=== PATIENT | female | born 1995 | race Caucasian/White ===

== ENCOUNTER 2016-09-20 22:47 | Emergency (ER) | payer SELFPAY ==
[~2016-09-20] VITALS: Ht 165.1 cm; Wt 77.1 kg
[2016-09-20 22:55] VITALS: BP 144/72
--- NOTE | 2016-09-20 23:23 | PHYS DOC ---
Past Medical History Past Medical History: Asthma Past Surgical History: Tonsillectomy Alcohol Use: None Drug Use: None Adult General Chief Complaint Chief Complaint: FLU SYMPTOM HPI HPI Patient is a 21 year old female who presents emergency department with a four- day history of cough, congestion, body aches, subjective fevers and chills. 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 She states she is exposed to multiple people each day that are ill. She denies any known direct contact with anyone with influenza. She states that she began taking azithromycin yesterday at home for azithromycin that was left over. She states that she has a history of asthma. She states that she has had multiple albuterol nebulized treatments today. Last one was approximately 30 minutes prior to arrival. Review of Systems Review of Systems Constitutional: Denies fever or chills [] Eyes: Denies change in visual acuity, redness, or eye pain [] HENT: Denies nasal congestion or sore throat [] Respiratory: Denies cough or shortness of breath [] Cardiovascular: No additional information not addressed in HPI [] GI: Denies abdominal pain, nausea, vomiting, bloody stools or diarrhea [] : Denies dysuria or hematuria [] Musculoskeletal: Denies back pain or joint pain [] Integument: Denies rash or skin lesions [] Neurologic: Denies headache, focal weakness or sensory changes [] Endocrine: Denies polyuria or polydipsia [] Allergies Allergies Allergies Coded Allergies Type Severity Reaction Last Updated Verified Sulfa (Sulfonamide Antibiotics) Allergy Unknown Hives 06/20/14 No Physical Exam Physical Exam Constitutional: Well developed, well nourished, no acute distress, non-toxic appearance. Patient is afebrile. HENT: Normocephalic, atraumatic, bilateral external ears normal, oropharynx is tacky, no oral exudates, clear nasal discharge bilaterally. Eyes: PERRLA, EOMI, conjunctiva normal, no discharge. [] Neck: Normal range of motion, no tenderness, supple, no stridor. There is no meningismus. There is bilateral anterior and posterior cervical lymphadenopathy. Cardiovascular:Heart rate 112 with regular rhythm, no murmur Lungs & Thorax: There is no respiratory distress or respiratory fatigue. There is end-expiratory wheezes primarily in the right lung pagan. Abdomen: Bowel sounds normal, soft, no tenderness, no masses, no pulsatile masses. [] Skin: Warm, dry, no erythema, no rash. Back: No tenderness, no CVA tenderness. [] Extremities: No tenderness, no cyanosis, no clubbing, ROM intact, no edema. [] Neurologic: Alert and oriented X 3, normal motor function, normal sensory function, no focal deficits noted. Psychologic: Affect normal, judgement normal, mood normal. [] Current Patient Data Vital Signs Vital Signs Date Time Temp Pulse Resp B/P Pulse Ox O2 Delivery O2 Flow Rate FiO2 09/20/16 22:55 98.3 119 20 97 Room Air 98.3 EKG EKG [] Radiology/Procedures Radiology/Procedures PA and lateral chest x-ray was performed with adequate technique and reviewed by Dr. John and myself. There is no evidence of thoracic pathology. Course & Med Decision Making Course & Med Decision Making Pertinent Labs and Imaging studies reviewed. (See chart for details) [] Dragon Disclaimer Dragon Disclaimer This electronic medical record was generated, in whole or in part, using a voice recognition dictation system. Departure Departure Impression: Primary Impression: Acute bronchitis Additional Impression: Upper respiratory infection Disposition: HOME, SELF-CARE Condition: GOOD Referrals: AJ BERGERON MD (PCP) Patient Instructions: Acute Bronchitis, [id number], Upper Respiratory Infection, Adult, [id number] Additional Instructions: 1. Your chest x-ray today shows no evidence of pneumonia. 2. Take the medication as prescribed. Use your nebulizer every 6 hours for wheezing and difficulty breathing. 3. Complete the azithromycin that you began taking. 4. Rest at home for the next 2 days. Drink 8-10, 10 ounce glasses of water daily. X 5. Follow-up with your primary care doctor within the next week. Sooner if your condition worsens. Scripts Hydrocodone/Chlorphen Polis (Tussionex Pennkinetic Susp)480 Ml [id number] Ml PO BID COUGH #120 ML Prov:MERRY SILVERIO 09/21/16 Prednisone 20 Mg Tablet2 Tab PO DAILY 5 Days Prov:MERRY SILVERIO 09/21/16 Problem Qualifiers MERRY SILVERIO Sep 20, 2016 23:24
[2016-09-21] MEDS ORDERED: HYDR115S2 PO (00:16)
[2016-09-21] MEDS ORDERED: PRED20TA PO (00:16)
--- NOTE | 2016-09-21 07:24 | RAD ---
2 view CXR: Clinical indications: Cough and fever and wheezing. Rales of the right lung field. Findings: No acute lung infiltrate or pleural effusion or pulmonary edema or lung mass or pneumothorax is seen. The heart size, pulmonary vasculature, mediastinum and both haider are unremarkable. The osseous structures appear intact. Impression: No acute radiographic abnormality is seen.
== END 2016-09-21 00:17 | disposition home or self-care (01) ==
LOC: ER 22:47
DX: J20.9 Acute bronchitis, unspecified (principal); J06.9 Acute upper respiratory infection, unspecified; J45.909 Unspecified asthma, uncomplicated; Z88.2 Allergy status to sulfonamides
CPT/HCPCS: 71020; 99284-25

== ENCOUNTER → 2018-07-23 | Outpatient (CLI) | payer OTHER ==
[~2018-07-23] MED LIST: HYDR115S2 PO; PRED20TA PO
--- NOTE | 2018-07-23 13:49 | KCIC ---
Right breast ultrasound: Reason for examination: Bloody discharge from right nipple. Patient is . Right whole breast ultrasound including evaluation of all 4 quadrants and the retroareolar and axillary regions of the right breast was performed. In the 12:00 position 8 cm from the nipple, there is a circumscribed nodule in parallel orientation with central vascular flow. Appearance suggests a probable intramammary lymph node. This measures 6.6 x 5.2 mm in greatest dimension. Recommend reevaluation in 3 months. No other cystic or solid nodules are seen. No ductal ectasia or intraductal papilloma are identified. No abnormal appearing lymph nodes are seen in the right axilla. IMPRESSION: 6.6 mm circumscribed nodule at the 12:00 position 8 cm from the nipple which probably represents an intramammary lymph node. No other focal abnormality seen. Recommend reevaluation of the right breast in 3 months with ultrasound. Recommend galactography for the right nipple discharge. BI-RADS Category 0: Incomplete: Need additional imaging evaluation. "Our facility is accredited by the [employer] Mammography Program." This patient's information has been entered into a reminder system for the patient to be notified with the results of her examination and a target date for the next mammogram. Electronically signed by: Dottie Rodriguez MD (07/23/2018 1:45 PM) [facility]
== END | disposition home or self-care (01) ==
LOC: KCIC US 12:38
PROVIDERS: ATTEND Obstetrics & Gynecology
DX: O26.893 Other specified pregnancy related conditions, third trimester (principal); N64.52 Nipple discharge; N63.12 Unspecified lump in the right breast, upper inner quadrant; Z3A.30 30 weeks gestation of pregnancy
CPT/HCPCS: 76641